=== PATIENT | female | born 1985 | race Caucasian/White ===

== ENCOUNTER 2019-06-22 02:18 | Emergency (ER) | payer MEDICAID, OTHER ==
[2019-06-22] MEDS ORDERED: Ketorolac 60 MG/2 ML SDV IM ONE (02:33)
[2019-06-22] MEDS ORDERED: LORazepam 1 MG Tab PO ONE (02:35)
--- NOTE | 2019-06-22 02:36 | EDM.PDOC ---
ED HPI GENERAL MEDICAL PROBLEM - General Chief Complaint: Abdominal Pain Stated Complaint: SEVERE KIDNEY PAIN Time Seen by Provider: 06/22/19 02:31 Source of Information: Reports: Patient, Family, RN Notes Reviewed History Limitations: Reports: No Limitations - History of Present Illness INITIAL COMMENTS - FREE TEXT/NARRATIVE: 33-year-old female presents emergency department today complaint of left flank pain, she recently underwent lithotripsy approximately [address] as well was placed on antibiotic does have hydrocodone for pain. Unfortunately this evening woke up in severe left flank pain with some nausea and lightheadedness secondary to the pain. Left Flank Pain Score (Numeric/FACES): 10 - Related Data Allergies Allergy/AdvReac Type Severity Reaction Status Date / Time No Known Allergies Allergy Verified 06/22/19 02:21 Home Meds: Home Meds *Antibotic 1 tab PO TID 06/22/19 [History] *Hydrocodon-Acetamin 1 tab PO Q6H PRN 06/22/19 [History] Past Medical History Gastrointestinal History: Reports: Irritable Bowel Syndrome Genitourinary History: Reports: Renal Calculus Psychiatric History: Reports: Anxiety, Panic Attack Endocrine/Metabolic History: Reports: Obesity/BMI 30+ - Infectious Disease History Infectious Disease History: Reports: Chicken Pox - Past Surgical History GI Surgical History: Reports: Cholecystectomy, Hernia, Inguinal, Hernia Repair/ Other Female Surgical History: Reports: Ureteral Stent Social & Family History - Tobacco Use Smoking Status *Q: Never Smoker - Recreational Drug Use Recreational Drug Use: No ED ROS GENERAL - Review of Systems Review Of Systems: See Below Constitutional: Reports: No Symptoms GI/Abdominal: Reports: Nausea : Reports: Flank Pain ED EXAM, RENAL/ - Physical Exam Exam: See Below Exam Limited By: Intoxication General Appearance: Alert, Mild Distress Respiratory/Chest: No Respiratory Distress GI/Abdominal: Soft Back Exam: CVA Tenderness (L). No: CVA Tenderness (R) Course - Vital Signs Last Recorded V/S: Last Vital Signs Temp Pulse 88 06/22/19 02:29 Resp 24 H 06/22/19 02:29 BP 132/88 06/22/19 02:29 Pulse Ox 98 06/22/19 02:29 - Orders/Labs/Meds Labs: Laboratory Tests 06/22/19 Range/Units 02:33 Urine Color Brown A (YELLOW) Urine Appearance Cloudy A (CLEAR) Urine pH 5.5 (5.0-8.0) Ur Specific [place] 1.025 (1.008-1.030) Urine Protein >=300 H (NEGATIVE) mg/dL Urine Glucose (UA) Negative (NEGATIVE) mg/dL Urine Ketones Negative (NEGATIVE) mg/dL Urine Occult Blood Large H (NEGATIVE) Urine Nitrite Negative (NEGATIVE) Urine Bilirubin Small H (NEGATIVE) Urine Urobilinogen 0.2 (0.2-1.0) EU/dL Ur Leukocyte Esterase Small H (NEGATIVE) Urine RBC Packed H (0-5) Urine WBC 10-20 H (0-5) Ur Epithelial Cells Moderate Amorphous Sediment Not seen Urine Bacteria Few Urine Mucus Few Urine Other Meds: Medications Discontinued Medications Generic Name Dose Route Start Last Admin Trade Name Dereckq PRN Reason Stop Dose Admin Ketorolac Tromethamine 60 mg 06/22/19 02:33 06/22/19 02:47 Toradol IM 06/22/19 02:34 60 mg ONETIME ONE Administration Lorazepam 1 mg 06/22/19 02:35 06/22/19 02:48 Ativan PO 06/22/19 02:36 1 mg ONETIME ONE Administration Departure - Departure Time of Disposition: 03:59 Disposition: Home, Self-Care 01 Condition: Fair Clinical Impression: Left nephrolithiasis - Discharge Information Referrals: PCP,None [Primary Care Provider] - Forms: ED Department Discharge Additional Instructions: Continue with your medications prescribed by urology, call return to the emergency department worsening of symptoms keep your follow-up appointment with urology - Assessment/Plan Plan: Assessment Acuity = acute Site and laterality = nephrolithiasis Etiology = unknown Manifestations = flank pain Location of injury = Home Lab values = urinalysis reveals 10-20 WBCs consistent pyuria and packed RBCs consistent hematuria Plan She had good relief with the Toradol injection she is currently has Toradol and hydrocodone at home as well as an antibiotic provided by urology, she has a follow-up appointment with urology next week This note was dictated using [employer] voice recognition software please call with any questions on syntax or grammar.
== END 2019-06-22 04:12 | disposition home or self-care (01) ==
LOC: JP.ED 02:18
DX: N20.0 Calculus of kidney (principal); E66.9 Obesity, unspecified; Z68.42 Body mass index [BMI] 45.0-49.9, adult
CPT/HCPCS: 81001; 96372; 99284; A9270; J1885

== ENCOUNTER 2021-11-22 09:46 | Emergency (ER) | payer MEDICAID ==
[2021-11-22] MEDS ORDERED: Dexamethasone 4 MG/ML SDV PO STA (10:16)
== END 2021-11-22 11:26 | disposition home or self-care (01) ==
LOC: JP.ED 09:46
DX: J02.9 Acute pharyngitis, unspecified (principal); E66.9 Obesity, unspecified; Z68.43 Body mass index [BMI] 50.0-59.9, adult
CPT/HCPCS: 99282; 99284; J8540

== ENCOUNTER 2022-07-14 10:17 | Emergency (ER) | payer MEDICAID ==
[2022-07-14] MEDS ORDERED: Sodium Chloride 0.9% 10 ML Syringe FLUSH PRN (11:33)
[2022-07-14] MEDS ORDERED: Ketorolac 30 MG/ML SDV IVPUSH ONE (11:35)
[2022-07-14] MEDS ORDERED: Ondansetron 4 MG/2 ML SDV IVPUSH ONE (11:35)
[2022-07-14] MEDS ORDERED: Lactated Ringers 1,000 ML IV SCH (11:45)
[2022-07-14 12:08] LABS: ESTIMATED GFR 67 mL/min (>60); TROPONIN I HIGH SENSITIVITY 17.2 pg/mL (<=60.3)
== END 2022-07-14 16:21 | disposition home or self-care (01) ==
LOC: JP.ED 10:17
DX: N20.2 Calculus of kidney with calculus of ureter (principal); N30.90 Cystitis, unspecified without hematuria; Z88.0 Allergy status to penicillin
CPT/HCPCS: 36415; 74176; 80053; 83605; 83690; 84484; 85025; 86140; 96361; 96374; 96375; 99284; J1885; J2405; J3490; J7120

== ENCOUNTER 2025-05-05 23:55 | Emergency (ER) | payer MEDICAID ==
[2025-05-06 03:00] LABS: BASOPHILS ABSOLUTE AUTO 0.05 K/uL (0.00-0.10); BASOPHILS PERCENT AUTO 0.5 % (0.1-1.3); EOSINOPHILS ABSOLUTE AUTO 0.23 K/uL (0.00-0.40); EOSINOPHILS PERCENT AUTO 2.5 % (0.0-5.4); IMMATURE GRAN ABSOLUTE AUTO 0.05 K/uL (0.00-0.23); IMMATURE GRAN PERCENT AUTO 0.5 % (0.0-0.7); LYMPHOCYTES ABSOLUTE AUTO 2.80 K/uL (0.8-3.3); LYMPHOCYTES PERCENT AUTO 30.3 % (11.4-47.7); MONOCYTES ABSOLUTE AUTO 0.62 K/uL (0.20-0.90); MONOCYTES PERCENT AUTO 6.7 % (3.3-12.6); NEUTROPHILS ABSOLUTE AUTO 5.50 K/uL (1.0-7.6); NEUTROPHILS PERCENT AUTO 59.5 % (40.0-78.1); PLATELET COUNT,PLT 305 K/uL (130-375); RED BLOOD CELL COUNT 4.44 M/uL (3.77-5.24); WHITE BLOOD CELL COUNT,WBC 9.3 K/uL (3.2-11.0)
[2025-05-06 03:19] LABS: LACTIC ACID 1.6 mmol/L (0.4-2.0)
[2025-05-06 03:25] LABS: A/G RATIO 0.9 (1.2-2.2); ALANINE AMINOTRANSFERASE,ALT 46 U/L (12-78); ASPARTATE AMNIOTRANSFERASE,AST 26 U/L (15-37); BILIRUBIN TOTAL 0.3 mg/dL (0.2-1.0); BLOOD UREA NITROGEN,BUN 16 mg/dL (7-18); CARBON DIOXIDE,CO2 26 mmol/L (21-32); CHLORIDE,CL 104 mmol/L (100-108); CREATININE 0.7 mg/dL (0.6-1.0); EST CRCL DRUG DOSING (CG) 109.92 mL/min; ESTIMATED GFR 113 mL/min (>60); GLUCOSE RANDOM 105 mg/dL (74-106); POTASSIUM,K 3.9 mmol/L (3.6-5.2); PROTEIN TOTAL,TP 7.8 g/dL (6.4-8.2); SODIUM,NA 140 mmol/L (140-148)
[2025-05-06] MEDS: Sodium Chloride 0.9% 10 ML Syringe FLUSH PRN (03:38)
[2025-05-06] MEDS: Iopamidol 612 MG/ML 100 ML Bottle IV SCH (03:38)
[2025-05-06 04:03] LABS: APPEARANCE,URINE CLEAR (CLEAR); GLUCOSE,URINE 100 mg/dL (NEGATIVE); OCCULT BLOOD,URINE MODERATE (NEGATIVE)
[2025-05-06 04:14] LABS: SQUAMOUS EPITHELIAL CELLS,UR FEW /HPF; UROTHELIAL CELLS,URINE NOT SEEN /HPF
== END 2025-05-06 04:55 | disposition home or self-care (01) ==
LOC: JP.ED 23:55
DX: K63.89 Other specified diseases of intestine (principal); E66.9 Obesity, unspecified; Z90.49 Acquired absence of other specified parts of digestive tract; Z88.0 Allergy status to penicillin; Z88.8 Allergy status to other drugs, medicaments and biological substances; Z79.899 Other long term (current) drug therapy; Z68.43 Body mass index [BMI] 50.0-59.9, adult
CPT/HCPCS: 36415; 74177; 80053; 81001; 83605; 83690; 84703; 85025; 86140; 99284; Q9967

== ENCOUNTER 2025-07-29 15:19 | Emergency (ER) | payer MEDICAID ==
[2025-07-29 16:59] LABS: BASE EXCESS VENOUS -2.3 mm/L; BICARBONATE,VENOUS 21.6 mmol/L; O2 SATURATION VENOUS 68.1; OXYHEMOGLOBIN 66.3 %; PCO2 VENOUS 36.5 mm/Hg; PH,VENOUS 7.390 (7.350-7.450); PO2 VENOUS 40.2 mm/Hg; TOTAL HEMOGLOBIN 15.0 g/dL (12.0-16.0)
[2025-07-29 17:00] LABS: BASOPHILS ABSOLUTE AUTO 0.05 K/uL (0.00-0.10); BASOPHILS PERCENT AUTO 0.5 % (0.1-1.3); EOSINOPHILS ABSOLUTE AUTO 0.18 K/uL (0.00-0.40); EOSINOPHILS PERCENT AUTO 1.8 % (0.0-5.4); IMMATURE GRAN ABSOLUTE AUTO 0.04 K/uL (0.00-0.23); IMMATURE GRAN PERCENT AUTO 0.4 % (0.0-0.7); LYMPHOCYTES ABSOLUTE AUTO 2.33 K/uL (0.8-3.3); LYMPHOCYTES PERCENT AUTO 23.7 % (11.4-47.7); MONOCYTES ABSOLUTE AUTO 0.74 K/uL (0.20-0.90); MONOCYTES PERCENT AUTO 7.5 % (3.3-12.6); NEUTROPHILS ABSOLUTE AUTO 6.51 K/uL (1.0-7.6); NEUTROPHILS PERCENT AUTO 66.1 % (40.0-78.1); PLATELET COUNT,PLT 307 K/uL (130-375); RED BLOOD CELL COUNT 4.80 M/uL (3.77-5.24); WHITE BLOOD CELL COUNT,WBC 9.9 K/uL (3.2-11.0)
[2025-07-29] MEDS: Nitroglycerin 0.4 MG Tab.SL SL PRN (17:04)
[2025-07-29 17:18] LABS: INR 1.0
[2025-07-29 17:31] LABS: A/G RATIO 0.9 (1.2-2.2); ALANINE AMINOTRANSFERASE,ALT 29 U/L (12-78); ASPARTATE AMNIOTRANSFERASE,AST 24 U/L (15-37); BILIRUBIN TOTAL 0.4 mg/dL (0.2-1.0); BLOOD UREA NITROGEN,BUN 15 mg/dL (7-18); CARBON DIOXIDE,CO2 23 mmol/L (21-32); CHLORIDE,CL 105 mmol/L (100-108); CREATININE 0.7 mg/dL (0.6-1.0); EST CRCL DRUG DOSING (CG) 109.92 mL/min; ESTIMATED GFR 113 mL/min (>60); GLUCOSE RANDOM 86 mg/dL (74-106); POTASSIUM,K 3.7 mmol/L (3.6-5.2); PRO B-TYPE NATRIUR PEPT,BNPPRO 600 pg/mL (5-125); PROTEIN TOTAL,TP 8.2 g/dL (6.4-8.2); SODIUM,NA 141 mmol/L (140-148)
== END 2025-07-29 20:14 | disposition home or self-care (01) ==
LOC: JP.ED 15:19
DX: I48.91 Unspecified atrial fibrillation (principal); I50.9 Heart failure, unspecified; E66.9 Obesity, unspecified; Z88.0 Allergy status to penicillin; Z88.1 Allergy status to other antibiotic agents; Z79.899 Other long term (current) drug therapy; Z68.43 Body mass index [BMI] 50.0-59.9, adult
CPT/HCPCS: 36415; 71045; 80053; 82803; 83605; 83880; 84484; 85025; 85379; 85610; 93005; 99285; A9270; J7030